=== PATIENT | female | born 1995 | race Hispanic/Latino ===

== ENCOUNTER 2018-04-05 23:48 | Emergency (ER) | payer OTHER ==
[2018-04-06] MEDS ORDERED: ONDANSETRON HCL 4 MG/2 ML VIAL ONE (00:40)
[2018-04-06] MEDS ORDERED: MORPHINE SULFATE 8 MG/ML VIAL ONE (00:40)
[2018-04-06] MEDS ORDERED: LIDOCAINE 1%-EPI 1:100,000 20 ML VIAL IJ ONE (00:40)
[2018-04-06] MEDS ORDERED: CLINDAMYCIN HCL 150 MG CAP ONE (01:26)
== END 2018-04-06 01:41 | disposition home or self-care (01) ==
LOC: EDH 23:48
DX: L05.01 Pilonidal cyst with abscess (principal)
CPT/HCPCS: 10080; 96374; 96375; 99283; J2270; J2405; J3490

== ENCOUNTER 2022-06-10 11:42 | Emergency (ER) | payer BC, SELFPAY ==
[~2022-06-10] VITALS: Ht 149.9 cm; Wt 64.4 kg
[2022-06-10 12:08] VITALS: BP 112/99
[2022-06-10] MEDS ORDERED: HYDR-3421 PO (14:12)
[2022-06-10] MEDS ORDERED: BETA15C TP (14:12)
[2022-06-10] MEDS ORDERED: FAMO-136 PO (14:12)
[2022-06-10] MEDS ORDERED: METH4TAB3 PO (14:12)
[2022-06-10] MEDS ORDERED: DIPHENHYDRAMINE HCL 25 MG CAPSULE PO ONE (14:30)
[2022-06-10] MEDS ORDERED: FAMOTIDINE 20MG TAB PO ONE (14:30)
[2022-06-10] MEDS ORDERED: DEXAMETHASONE SOD PHOSPHATE 4 MG/ML 1ML VIAL IM ONE (14:30)
== END 2022-06-10 14:54 | disposition home or self-care (01) ==
LOC: EDH 11:42
DX: L25.9 Unspecified contact dermatitis, unspecified cause (principal); L50.9 Urticaria, unspecified
CPT/HCPCS: 99283; 96372; J1100; Q0163